=== PATIENT | female | born 1970 | race Asian ===

== ENCOUNTER 2018-05-28 00:26 | Emergency (ER) | payer OTHER ==
[~2018-05-28] VITALS: Ht 165.1 cm; Wt 109.8 kg
[2018-05-28] MEDS ORDERED: AMLO2.5T PO (00:32)
[2018-05-28] MEDS ORDERED: BENAZEPRIL5 MG PO (00:32)
[2018-05-28] MEDS ORDERED: ATEN25TA21 PO (00:32)
[2018-05-28 01:01] LABS: PLATELET COUNT 364 K/uL (152-353)
[2018-05-28 02:07] LABS: POTASSIUM 3.9 mmol/L (3.6-5.2); SODIUM 141 mmol/L (136-145)
[2018-05-28 02:55] VITALS: BP 141/97; TEMP 98.1
== END 2018-05-28 02:57 | disposition home or self-care (01) ==
LOC: ED 00:26
PROVIDERS: Emergency Medicine
DX: R07.89 Other chest pain (principal)
CPT/HCPCS: 36415; 80053; 82550; 84484; 85027; 93005; 96374; 99284; J2405

== ENCOUNTER 2019-03-16 01:14 | Emergency (ER) | payer OTHER ==
[~2019-03-16] VITALS: Ht 165.1 cm; Wt 124.3 kg
[~2019-03-16 01:14] MED LIST: AMLO2.5T PO; ATEN25TA21 PO; BENAZEPRIL5 MG PO
[2019-03-16 02:55] VITALS: BP 148/78; TEMP 98.2
== END 2019-03-16 02:55 | disposition home or self-care (01) ==
LOC: ED 01:14
DX: J06.9 Acute upper respiratory infection, unspecified (principal); J20.8 Acute bronchitis due to other specified organisms; F17.210 Nicotine dependence, cigarettes, uncomplicated
CPT/HCPCS: 87502; 87651; 99283

== ENCOUNTER 2020-08-25 16:16 | Outpatient (CLI) | payer OTHER | END 2020-08-25 19:57 | disposition home or self-care (01) | LOC: LAB 16:16 | PROVIDERS: ATTEND Nurse Practitioner Family | DX: R80.9 Proteinuria, unspecified (principal) | CPT/HCPCS: 84156 ==